=== PATIENT | male | born 1975 | race Caucasian/White ===

== ENCOUNTER → 2016-07-11 | Outpatient (CLI) | payer BC, OTHER | END | disposition home or self-care (01) | LOC: GMAJ 12:10 | PROVIDERS: ATTEND Family Medicine | DX: R10.13 Epigastric pain (principal) ==

== ENCOUNTER 2016-08-09 05:51 | Day surgery (SDC) | payer BC, OTHER ==
[2016-08-09] MEDS ORDERED: LACTATED RINGERS 1,000 ML ONE (06:07)
[2016-08-09] MEDS ORDERED: LIDOCAINE 1% 10 ML VIAL INJ ONE (07:00)
[2016-08-09] MEDS ORDERED: PROPOFOL 200 MG/20 ML VIAL IV ONE (07:00)
--- NOTE | 2016-08-09 08:02 | OP ---
DATE OF PROCEDURE: 08/09/16 PREOPERATIVE DIAGNOSIS: 1. Colon cancer screen. 2. Bright red blood per rectum. 3. Constipation, suspected secondary to irritable bowel syndrome. POSTOPERATIVE DIAGNOSIS: 1. Colon cancer screen. 2. Bright red blood per rectum. 3. Constipation, suspected secondary to irritable bowel syndrome. 4. Normal colonoscopy to the cecum. PROCEDURE: 1. Colonoscopy. SURGEON: Silvino Lundberg MD. ANESTHESIA: MAC by Yobani Rivera CRNA. ESTIMATED BLOOD LOSS: None. COMPLICATIONS: None apparent. TECHNIQUE: After informed consent was obtained from the patient, the patient was taken to the Endoscopy Suite and put in the left lateral decubitus position. After adequate IV sedation was obtained, a digital rectal exam was performed which revealed normal sphincter tone, no intraluminal masses, and a smooth, 1+, anodular prostate. The colonoscope was then passed with good visualization all the way through the colon. The bowel prep was good. There was a moderate amount of liquid stool that we easily suctioned clear. The cecum was identified by the presence of ileocecal valve and appendiceal orifice. The scope was then withdrawn slowly over 10 minutes and a good look at the entire colonic wall was obtained. The patient had a normal colon. There were no masses, polyps, diverticulosis, or other mucosal lesions identified on this examination. The scope was removed. The patient tolerated the procedure well. The patient was transported to the outpatient area in good condition. I believe the patient has irritable bowel syndrome with predominant constipating symptoms. His episode of bright red blood per rectum was from bleeding internal hemorrhoids that have since subsided. The patient is doing good on Linzess at this time. I will have him continue the current bowel regimen including a high fiber diet. He will followup with me in three months. #[id number] [facility]ITAL[facility]
[2016-08-09 08:27] VITALS: O2SAT 100
[2016-08-09 08:31] VITALS: BP 116/81; TEMP 97.5
== END 2016-08-09 08:00 | disposition home or self-care (01) ==
LOC: AMB 05:51
PROVIDERS: ATTEND Family Medicine
DX: K92.1 Melena (principal); K59.00 Constipation, unspecified; F90.9 Attention-deficit hyperactivity disorder, unspecified type; Z79.899 Other long term (current) drug therapy

== ENCOUNTER → 2017-07-25 | Outpatient (CLI) | payer BC ==
--- NOTE | 2017-07-25 08:25 | MRI ---
EXAM DESCRIPTION: Lumbar Spine w/o Contrast CLINICAL HISTORY: LOW BACK PAIN COMPARISON: None Available. TECHNIQUE: MRI of the lumbar spine is performed according to our usual protocol with axial and sagittal multi sequence imaging. FINDINGS: Sagittal T2 images reveal decreased signal intensity consistent with desiccation of the intervertebral discs at levels L4-5 and L5-S1. Posterior annular bulges are most prominent at these levels as well. No prevertebral mass or aneurysm. Lower cord and conus appear normal. Tip of the conus is behind T12-L1 disc level. Sagittal T1 images reveal benign marrow signal characteristics. Normal T1 signal intensity and appearance of the lower cord and conus. Sagittal STIR images are negative for marrow edema within the vertebral bodies or posterior elements. No paraspinous fluid collection or cystic lesion. Axial T1 and T2-weighted images were obtained to evaluate the disc levels. T12-L1: No posterior annular bulge or herniation. No spinal stenosis or neural foraminal narrowing. Facets appear normal. Normal conus and upper cauda equina. L1:2: No posterior annular bulge or herniation. No spinal stenosis or neural foraminal narrowing. Facets appear normal. L2-3: Mild diffuse posterior annular bulge without focal disc herniation. There is narrowing of subarticular recesses without nerve root displacement. Mild facet hypertrophy is seen with mild thickening of the ligamentum flavum. The left neural foramen is widely patent. Bulging disc and small marginal osteophyte encroach upon the inferior aspect of the right neural foramen with mild narrowing. L3-4: Axial images show moderate diffuse posterior annular bulge with significant narrowing of subarticular recesses bilaterally. Moderate facet hypertrophy is seen left more than right with thickening of the ligamentum flavum. Bulging disc and marginal osteophyte encroach upon the inferior aspect the left neural foramen with moderate narrowing. Mild narrowing on the right is noted as well. L4-5: Moderate diffuse posterior annular bulge is seen with slight right lateral accentuation but without high-grade spinal stenosis. Spinal canal measures 1.2 cm in AP dimension in the mid sagittal plane. There is severe narrowing of subarticular recesses with impingement upon the left more than right descending L5 nerve roots. Marked facet hypertrophy is seen with ligamentum flavum thickening. There is moderately severe bilateral neural foraminal narrowing. L5-S1: Tiny focus of increased signal intensity in the posterior margin of the L5-S1 disc is consistent with a small annular tear. Left paracentral and left lateral broad-based disc protrusion is superimposed upon mild diffuse annular bulge. On the sagittal images, slight extension inferiorly behind the upper portion of S1 is noted. This measures approximately 5 mm in AP dimension and approximately 5 mm in craniocaudal dimension. There is moderate facet hypertrophy with ligamentum flavum thickening significantly narrowing the left subarticular recess. No spinal stenosis. Mild neural foraminal narrowing is seen on the left. The right neural foramen appears widely patent. Upper sacrum appears intact. Degenerative changes are seen at the SI joints. No retroperitoneal mass or adenopathy. No aortic aneurysm. IMPRESSION: Broad-based left paracentral and left lateral 5 mm disc protrusion at L5-S1 narrowing the left subarticular recess and encroaching upon the descending left S1 nerve root. Moderate diffuse posterior annular bulges at L3-4 and L4-5 with subarticular recess and neural foraminal narrowing as described. Electronically signed by: Duarte Spence MD 07/25/2017 8:24 AM CDT
== END ==
LOC: MRI 07:14
PROVIDERS: ATTEND Family Medicine
DX: M51.27 Other intervertebral disc displacement, lumbosacral region (principal)

== ENCOUNTER 2018-05-05 01:36 | Emergency (ER) | payer BC ==
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
[2018-05-05] MEDS ORDERED: HYDROCOD/APAP 10/325 (ER DISP) # 3 tablets PO ONE (03:30)
[2018-05-05] MEDS ORDERED: HYDROcodone 10MG/APAP 325MG 1 EA TAB PO ONE (03:30)
[2018-05-05 04:14] VITALS: O2SAT 97
[2018-05-05 04:20] VITALS: BP 137/82; TEMP 97.9
== END 2018-05-05 03:50 | disposition home or self-care (01) ==
LOC: ER 01:36
DX: S83.92XA Sprain of unspecified site of left knee, initial encounter (principal); S93.402A Sprain of unspecified ligament of left ankle, initial encounter; S80.212A Abrasion, left knee, initial encounter; V86.99XA Unspecified occupant of other special all-terrain or other off-road motor vehicle injured in nontraffic accident, initial encounter; Y92.9 Unspecified place or not applicable

== ENCOUNTER → 2019-01-14 | Outpatient (CLI) | payer BC ==
--- NOTE | 2019-01-15 10:37 | MRI ---
EXAM DESCRIPTION: Lumbar Spine w/o Contrast : Magnetic Resonance Imaging. CLINICAL HISTORY: OTHER INTERVERTEBRAL DISC DISPLACEMENT LUMBAR REGION COMPARISON: MRI scan lumbar spine without contrast 07/25/2017. TECHNIQUE: Multiplanar, multiple standard sequences, non contrast MRI, lumbar spine. FINDINGS: L5-S1: The disc is well visualized on axial T2 series 501, image 3. Bilaterally shortened pedicles at this level and multiple levels, no change from the prior study. Minimal disc desiccation and bulge slightly to the left of midline impressing on the left ventral thecal sac and abutting the descending left S1 nerve. AP canal diameter 11 mm. Moderate left foraminal narrowing and mild right foraminal narrowing. Facets and ligaments negative. Stable since the prior study. L4-L5: Disc desiccation with right paracentral 4 mm disc bulge and minimal effacement of the right subarticular recess. AP canal diameter 9 mm. Minimal thickening of the posterior ligaments. Borderline right foraminal stenosis and moderate to severe narrowing of the left foramen. Stable from the prior study. L3-L4: Normal signal in the disc with no bulging, disc space maintained. AP canal diameter 12 mm. Posterior elements unremarkable. Bilateral mild foraminal narrowing. No change from the prior study. L2-L3: Disc desiccation but disc space maintained with no bulging. Posterior elements unremarkable. Bilateral foramina are patent despite narrowing on the right. AP canal diameter 11 mm. Stable since the prior study. L1-L2: Normal signal in the disc with disc space preserved. Posterior elements unremarkable. Canal and foramina are patent. T12-L1: Normal signal in the disc with disc space preserved. Posterior elements unremarkable. Canal and foramina are patent. Conus terminates at this level. Anatomic alignment and curvature of the spine. Paravertebral soft tissues negative.. Distal cord normal signal and caliber. Normal marrow signal in the remaining vertebral bodies and the posterior elements. Vertebral bodies are not compressed at any level. IMPRESSION: 1. Multiple levels of canal narrowing secondary to bilateral shortened pedicles probably congenital and also seen on the prior study. Multiple desiccated discs. Posterior elements mostly unremarkable, with no significant contribution to canal or foraminal narrowing. 2. Posterior L5-S1 disc bulge to the left of midline abutting the descending left S1 nerve with moderate canal narrowing. Moderate left foraminal narrowing. Stable since the prior study. 3. L4-L5 right paracentral disc bulge and multifactorial mild canal stenosis. Borderline right foraminal stenosis and moderate to severe left foraminal narrowing. Stable from the prior study. Electronically signed by: Juan Ramos MD 01/15/2019 10:35 AM CDT
== END ==
LOC: MRI 10:36
PROVIDERS: ATTEND Family Medicine
DX: M51.26 Other intervertebral disc displacement, lumbar region (principal); M51.36 Other intervertebral disc degeneration, lumbar region; M51.87 Other intervertebral disc disorders, lumbosacral region; M48.061 Spinal stenosis, lumbar region without neurogenic claudication

== ENCOUNTER 2020-01-06 17:46 | Observation (INO) | payer BC ==
[2020-01-06] MEDS ORDERED: SODIUM CHLORIDE 0.9% (FLUSH) 10 ML SYG IV PRN ×2 (18:02→19:46)
--- NOTE | 2020-01-06 18:33 | RAD ---
EXAM: Chest,1 View CLINICAL INDICATION: Palpitations COMPARISON: There is no previous study for comparison. FINDINGS: A single view of the chest was obtained. The heart size is normal. The pulmonary vascularity is unremarkable. The lungs are clear. There is no consolidation, infiltrate, pleural effusion, or pneumothorax. IMPRESSION: No evidence of active pulmonary disease. Electronically signed by: Jhonny Ibanez MD 01/06/2020 6:31 PM CDT
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
[2020-01-06] MEDS ORDERED: LACTATED RINGERS 1,000 ML IVS ONE (19:54)
[2020-01-06] MEDS ORDERED: IV SET AND CAP CHANGE INJ INJ SCH (20:00)
--- NOTE | 2020-01-06 20:07 | HP ---
SUPERVISING PHYSICIAN: Nabil Marquez MD CHIEF COMPLAINT: Palpitations. HISTORY OF PRESENT ILLNESS: This is a 44-year-old male who came to the Emergency Room due to palpitations and shortness of breath. 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 He went back to the office and felt like his heart was beating out of his chest and he had some shortness of breath. He tried to drive home. He states he lives about 13 miles north of [facility], but on the way, he started losing some vision so he pulled over and ended up coming to the Emergency Room. In the ER, he was noted to have atrial fibrillation with rapid ventricular response. He was given two IV pushes of diltiazem 10 mg each. After that, he maintained a controlled rate in the 80s, but still persisted with atrial fibrillation. His blood pressure has been acceptable the whole time. Upon questioning, the patient states he has had multiple episodes over the last year or so where he has felt palpitations and some shortness of breath, but did not really know what it was. His states he had some testing at Dr. Lundberg' office which included an echocardiogram and EKG and at that time, everything was normal. His troponin was negative in the ER. Labs were pretty much unremarkable. Drug screen was negative. Chest x-ray was unremarkable. PAST MEDICAL HISTORY: 1. Irritable bowel syndrome with constipation. PAST SURGICAL HISTORY: 1. Ankle surgery. 2. Colonoscopy. MEDICATIONS: 1. Methylphenidate 30 mg p.o. daily. ALLERGIES: NO KNOWN DRUG ALLERGIES. FAMILY HISTORY: Unknown as he grew up in a boys home. SOCIAL HISTORY: He drinks socially and smokes socially, but not on a regular basis. He denies any illegal drugs. He is . REVIEW OF SYSTEMS: CONSTITUTIONAL: No fever or chills. No recent weight loss or weight gain. HEENT: No headaches. He did have some vision changes during this episode. No nasal congestion or throat pain. RESPIRATORY: Positive for some shortness of breath. No cough, hemoptysis or pleuritic chest pain. CARDIOVASCULAR: Positive for palpitations. No chest pain or peripheral edema. GASTROINTESTINAL: He had some nausea with some vomiting during this episode as well. No diarrhea, constipation or abdominal pain acutely. GENITOURINARY: No dysuria, frequency or flank pain. ENDOCRINE: No polydipsia, polyuria or polyphagia. No heat or cold intolerance. MUSCULOSKELETAL: No muscle cramps, joint pain or joint swelling. NEUROLOGIC: No paresthesias or seizures. He did have some near syncope. PHYSICAL EXAMINATION: VITAL SIGNS: Blood pressure 128/85, heart rate 79, respiratory rate 20, temperature 97.7, oxygen saturation 100%. GENERAL: Mr. Rodriguez is a 44-year-old male patient in no distress. NEUROLOGIC: The patient is alert. LUNGS: Clear to auscultation bilaterally. CARDIOVASCULAR: Irregular rate and rhythm. Normal S1, S2. ABDOMEN: Soft. Positive bowel sounds. GENITOURINARY: Deferred. EXTREMITIES: Lower extremities with no edema. Pulses 2+. Capillary refill is less than 2 seconds. LABORATORY: Labs and films are as discussed in history of present illness. IMPRESSION: 1. New onset atrial fibrillation. 2. Near syncope secondary to #1. 3. History of irritable bowel syndrome with constipation. PLAN: The patient will be admitted. I will place him on some p.o. diltiazem for rate control and 1 mg per kg of Lovenox. In the morning, we will get an echocardiogram and pending those results, will likely discharge tomorrow with plan for followup with cardiology. We will repeat labs in the morning as well. #[id number] [facility]
[2020-01-06] MEDS ORDERED: ENOXAPARIN SODIUM 100 MG/ML SYG SUBCU ONE (20:44)
[2020-01-06] MEDS: diltiaZEM HCL CD 180 MG CAP PO SCH (20:47)
[2020-01-07] MEDS ORDERED: ENOXAPARIN SODIUM 100 MG/ML SYG SUBCU ONE (07:49)
[2020-01-07] MEDS: diltiaZEM HCL CD 180 MG CAP PO SCH (09:54)
[2020-01-07 10:32] VITALS: BP 133/85; TEMP 98; O2SAT 98
--- NOTE | 2020-01-07 11:59 | DS ---
SUPERVISING PHYSICIAN: Nabil Marquez MD ADMISSION DIAGNOSIS: 1. New onset atrial fibrillation. 2. Near syncope secondary to #1. 3. History of irritable bowel syndrome with constipation. DISCHARGE DIAGNOSIS: 1. New onset atrial fibrillation. 2. Near syncope secondary to #1. 3. History of irritable bowel syndrome with constipation. HOSPITAL COURSE: This is a 44-year-old male who came to the Emergency Room due to palpitations and shortness of breath. 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 He went back to the office and felt like his heart was beating out of his chest and he had some shortness of breath. He tried to drive home. He states he lives about 13 miles north of [facility], but on the way, he started losing some vision so he pulled over and ended up coming to the Emergency Room. In the ER, he was noted to have atrial fibrillation with rapid ventricular response. He was given two IV pushes of diltiazem 10 mg each. After that, he maintained a controlled rate in the 80s, but still persisted with atrial fibrillation. His blood pressure has been acceptable the whole time. Upon questioning, the patient states he has had multiple episodes over the last year or so where he has felt palpitations and some shortness of breath, but did not really know what it was. His states he had some testing at Dr. Lundberg' office which included an echocardiogram and EKG and at that time, everything was normal. His troponin was negative in the ER. Labs were pretty much unremarkable. Drug screen was negative. Chest x-ray was unremarkable. Once on the Floor, the patient spontaneously converted to sinus rhythm and had episodes of sinus bradycardia as well. Blood pressure remained acceptable. He had an echocardiogram this morning which is still pending interpretation. I am going to discharge him home on Eliquis 5 mg b.i.d. Additionally, I have prescribed 120 mg of extended release Cardizem to be taken on an as needed basis. In the event he starts to feel palpitations, he can take one of the pills and call Dr. Lundberg' office. I have discussed anticoagulation as well as the Cardizem dosing with Dr. Lundberg already. He can followup with Dr. Lundberg next week and Dr. Lundberg is going to get a consultation with Dr. Garcia in [place] for his atrial fibrillation. Activity will be as tolerated, try not to over heat, drink plenty of fluids. Diet as per usual diet, but avoid any energy drinks. #[id number] [facility]
[2020-01-07] MEDS ORDERED: ENOXAPARIN SODIUM 100 MG/ML SYG SUBCU SCH (21:00)
== END 2020-01-07 11:10 | disposition home or self-care (01) ==
LOC: ER 17:46 → MS 20:05
PROVIDERS: ADMIT Nurse Practitioner; ATTEND Nurse Practitioner
DX: I48.91 Unspecified atrial fibrillation (principal); R55 Syncope and collapse; K58.1 Irritable bowel syndrome with constipation; E86.0 Dehydration; F90.9 Attention-deficit hyperactivity disorder, unspecified type; I08.1 Rheumatic disorders of both mitral and tricuspid valves; Z72.0 Tobacco use; Z79.899 Other long term (current) drug therapy
CPT/HCPCS: 96374; 96372 ×2; J1650 ×2; J7120; 80307; 36415; 82550; 80048; 82553; 85025; 85730; 85610; 84484; 81001; 80076; 84443; 71045; 94760; 99285; 93307; 93005 ×2; G0378